=== PATIENT | male | born 1965 | race Two or more races ===

== ENCOUNTER 2022-05-08 08:35 | Emergency (ER) | payer OTHER ==
[~2022-05-08] VITALS: Ht 175.3 cm; Wt 86.2 kg
[2022-05-08] MEDS ORDERED: LISINOPRIL2.5 MG PO (09:05)
[2022-05-08] MEDS ORDERED: ST. JOSEPH ASPI81 M2 PO (09:05)
[2022-05-08] MEDS ORDERED: BRILINTA60 MG PO (09:05)
[2022-05-08] MEDS ORDERED: LOPRESSOR25 MG PO (09:05)
[2022-05-08] MEDS ORDERED: ROSUVASTATIN CA40 MG PO (09:05)
[2022-05-08] MEDS ORDERED: METFORMIN HCL500 M4 PO (09:05)
[2022-05-08] MEDS ORDERED: MUPIROCIN1 G1 TOP (09:26)
== END 2022-05-08 10:06 | disposition home or self-care (01) ==
LOC: ER 08:35
DX: S69.81XA Other specified injuries of right wrist, hand and finger(s), initial encounter (principal); W45.8XXA Other foreign body or object entering through skin, initial encounter; Y93.89 Activity, other specified; Y92.89 Other specified places as the place of occurrence of the external cause; I10 Essential (primary) hypertension; E11.9 Type 2 diabetes mellitus without complications; Z79.84 Long term (current) use of oral hypoglycemic drugs; Z88.0 Allergy status to penicillin; Z88.5 Allergy status to narcotic agent

== ENCOUNTER → 2022-07-19 | Emergency (ER) | payer OTHER ==
[~2022-07-19] VITALS: Ht 175.3 cm; Wt 88.5 kg
[~2022-07-19] MED LIST: BRILINTA60 MG PO; LISINOPRIL2.5 MG PO; LOPRESSOR25 MG PO; METFORMIN HCL500 M4 PO; MUPIROCIN1 G1 TOP; ROSUVASTATIN CA40 MG PO; ST. JOSEPH ASPI81 M2 PO
== END | disposition home or self-care (01) ==
LOC: ER 11:22
DX: S39.92XA Unspecified injury of lower back, initial encounter (principal); S99.911A Unspecified injury of right ankle, initial encounter; Z88.0 Allergy status to penicillin; Z88.6 Allergy status to analgesic agent; E11.9 Type 2 diabetes mellitus without complications; Z95.1 Presence of aortocoronary bypass graft